=== PATIENT | female | born 1950 | race Caucasian/White ===

== ENCOUNTER → 2018-03-07 | Outpatient (CLI) | payer OTHER | END | disposition home or self-care (01) | LOC: MAMO-SONO 08:13 | DX: Z12.31 Encounter for screening mammogram for malignant neoplasm of breast (principal) ==

== ENCOUNTER 2018-06-10 08:13 | Outpatient (CLI) | payer OTHER | END 2018-06-10 08:20 | disposition home or self-care (01) | LOC: MRI 08:13 | DX: M47.27 Other spondylosis with radiculopathy, lumbosacral region (principal) | CPT/HCPCS: 72148 ==

== ENCOUNTER 2018-09-05 07:36 | Outpatient (CLI) | payer OTHER | END 2018-09-05 07:49 | disposition home or self-care (01) | LOC: MRI 07:36 | DX: S06.0X0D Concussion without loss of consciousness, subsequent encounter (principal) | CPT/HCPCS: 70551 ==